=== PATIENT | female | born 1960 | race African-American/Black ===

== ENCOUNTER 2024-03-28 19:35 | Inpatient (IN) | payer MEDICAID ==
[~2024-03-28] VITALS: Ht 170.2 cm; Wt 83.7 kg
[~2024-03-28 19:35] MED LIST: GLIP10TA17 MT; LISI10TA26 MT; METF-1150 MT
[2024-03-28 20:00] VITALS: BP 130/76; PULSE 118; RESP 19; TEMP 36.1
[2024-03-28] MEDS ORDERED: NALOXONE HCL 0.4MG/ML 1ML VIAL IV PRN (20:00)
[2024-03-28] MEDS ORDERED: ACETAMINOPHEN WITH CODEINE 300/30MG TABLET PO PRN (20:00)
[2024-03-28] MEDS ORDERED: DOCUSATE SODIUM 100MG CAPSULE PO PRN (20:00)
[2024-03-28] MEDS ORDERED: ACETAMINOPHEN 325MG TABLET PO PRN (20:00)
[2024-03-28] MEDS ORDERED: DEXTROSE 50% WATER 50ML SYRINGE IV PRN (20:00)
[2024-03-28 20:23] VITALS: BP 130/76; PULSE 118; RESP 19; TEMP 36.1; O2SAT 99
[2024-03-28] MEDS ORDERED: NALOXONE HCL 0.4MG/ML VIAL IV PRN (20:30)
[2024-03-28] MEDS: ACETAMINOPHEN 325MG TABLET PO PRN (20:56)
[2024-03-28] MEDS: SENNOSIDES 8.6MG TABLET PO SCH (21:00)
[2024-03-28] MEDS: MELATONIN 3MG TABLET PO SCH (21:35)
[2024-03-28] MEDS: SODIUM BICARBONATE 650MG TABLET PO SCH (21:35)
[2024-03-28] MEDS: GUAIFENESIN 600MG ER TABLET PO SCH (21:35)
[2024-03-28] MEDS: BLOOD SUGAR DIAGNOSTIC STRIP TEST SCH (21:35)
[2024-03-28] MEDS: LORATADINE 10MG TABLET PO SCH (21:36)
[2024-03-28] MEDS: AMPICILLIN SOD/SULBACTAM NA 3 G in SODIUM CHLORIDE 0.9% 100 ML IV SCH (21:41)
[2024-03-28] MEDS: INSULIN GLARGINE 100 UNITS/ML SUBCUT SCH (22:35)
[2024-03-28] MEDS: INSULIN LISPRO 100 UNITS/ML SUBCUT SCH (22:35)
[2024-03-29] MEDS: ONDANSETRON HCL 4MG/2ML INJ IV PRN (00:37)
[2024-03-29] MEDS ORDERED: MECL-299 PO (03:00)
[2024-03-29] MEDS ORDERED: LISI40TA13 PO (03:00)
[2024-03-29] MEDS ORDERED: FLUT9.9S BOTHNSTRLS (03:23)
[2024-03-29] MEDS: PANTOPRAZOLE 40MG DR TABLET PO SCH (06:22)
[2024-03-29 07:39] LABS: CHLORIDE 106 mEq/L (98-107); POTASSIUM 4.1 mEq/L (3.5-5.1); SODIUM 140 mEq/L (136-145)
[2024-03-29 07:41] LABS: CALCIUM 9.4 mg/dL (8.7-10.4); CARBON DIOXIDE 25 mEq/L (21-32)
[2024-03-29 07:46] LABS: CREATININE 0.8 mg/dL (0.6-1.0); GLUCOSE 152 mg/dL (70-105); UREA NITROGEN BLOOD 6 mg/dL (9-23)
[2024-03-29 07:48] LABS: ALANINE AMINOTRANSFERASE 14 IU/L (10-49); ALBUMIN 3.3 g/dL (3.2-4.8); ASPARTATE AMINOTRANSFERASE 17 IU/L (<34); BILIRUBIN TOTAL 0.3 mg/dL (0.1-1.0); PROTEIN TOTAL 6.9 g/dL (6.0-8.3)
[2024-03-29 07:50] LABS: BASOPHILS % 0.3 % (0.0-2.0); DIFFERENTIAL COMMENT 0; EOSINOPHILS % 2.4 % (0.0-5.0); HEMATOCRIT. 26.9 % (36.0-48.0); HEMOGLOBIN. 8.8 g/dL (12.0-16.0); LYMPHOCYTES % 18.3 % (20.0-50.0); MEAN CORPUSCULAR HEMOGLOBIN 26.1 pg (28.0-32.0); MEAN CORPUSCULAR HGB CONC 32.7 g/dL (31.0-37.0); MEAN CORPUSCULAR VOLUME 79.8 fL (81.0-99.0); MEAN PLATELET VOLUME 7.8 fl (7.4-10.4); MONOCYTES % 8.9 % (2.0-8.0); NEUTROPHILS % 70.1 % (40.0-76.0); PLATELET 733 x1000/uL (130-400); RED BLOOD CELL COUNT 3.38 mill/uL (4.2-5.4); RED CELL DISTRIBUTION WIDTH 14.3 % (11.6-14.6); WHITE BLOOD COUNT 11.7 x1000/uL (4.5-11.0)
[2024-03-29 08:00] VITALS: BP 160/76; PULSE 110; RESP 18; TEMP 36.2; O2SAT 98
[2024-03-29] MEDS: POLYETHYLENE GLYCOL 3350 (17GM) 1 DOSE PACK PO SCH (08:45)
[2024-03-29] MEDS: FLUCONAZOLE 100MG TABLET PO SCH (08:45)
[2024-03-29] MEDS: FERROUS SULFATE 325MG TABLET PO SCH (08:45)
[2024-03-29] MEDS: HYDROCHLOROTHIAZIDE 12.5MG CAPSULE PO SCH (08:45)
[2024-03-29] MEDS: LISINOPRIL 40MG TABLET PO SCH (08:46)
[2024-03-29] MEDS: BISACODYL 5MG TABLET PO SCH (08:46)
[2024-03-29] MEDS ORDERED: LORATADINE 10MG TABLET PO SCH (09:00)
[2024-03-29] MEDS: CLONIDINE 0.1MG TABLET PO PRN (09:28)
[2024-03-29] MEDS: SODIUM CHLORIDE 45ML SPRAY NS PRN (12:48)
[2024-03-29 16:00] VITALS: PULSE 108; RESP 20
[2024-03-29] MEDS: IPRATROPIUM/ALBUTEROL 0.5-3(2.5)MG/3ML NEB HHN SCH (16:00)
[2024-03-29] MEDS: AMLODIPINE 2.5MG TABLET PO SCH (18:00)
[2024-03-29] MEDS: LEVOFLOXACIN 500MG TABLET PO SCH (18:00)
[2024-03-29 20:00] VITALS: BP 105/46; PULSE 95; RESP 18; TEMP 36.7; O2SAT 98
[2024-03-29 23:41] VITALS: PULSE 98; RESP 16; O2SAT 98
[2024-03-30 03:59] VITALS: PULSE 100; RESP 20; O2SAT 99
[2024-03-30 08:00] VITALS: BP 140/69; PULSE 91; RESP 19; TEMP 35.8; O2SAT 100
[2024-03-30 08:38] LABS: CARBON DIOXIDE 27 mEq/L (21-32); CHLORIDE 105 mEq/L (98-107); SODIUM 140 mEq/L (136-145)
[2024-03-30 08:39] LABS: CALCIUM 9.2 mg/dL (8.7-10.4)
[2024-03-30 08:44] LABS: CREATININE 0.7 mg/dL (0.6-1.0); GLUCOSE 168 mg/dL (70-105); UREA NITROGEN BLOOD 5 mg/dL (9-23)
[2024-03-30 09:21] LABS: BASOPHILS % 0.5 % (0.0-2.0); EOSINOPHILS % 2.8 % (0.0-5.0); HEMATOCRIT. 26.8 % (36.0-48.0); HEMOGLOBIN. 8.7 g/dL (12.0-16.0); LYMPHOCYTES % 20.9 % (20.0-50.0); MEAN CORPUSCULAR HEMOGLOBIN 26.3 pg (28.0-32.0); MEAN CORPUSCULAR HGB CONC 32.5 g/dL (31.0-37.0); MEAN CORPUSCULAR VOLUME 80.8 fL (81.0-99.0); MEAN PLATELET VOLUME 7.7 fl (7.4-10.4); MONOCYTES % 9.5 % (2.0-8.0); NEUTROPHILS % 66.3 % (40.0-76.0); PLATELET 652 x1000/uL (130-400); RED BLOOD CELL COUNT 3.32 mill/uL (4.2-5.4); RED CELL DISTRIBUTION WIDTH 14.8 % (11.6-14.6); WHITE BLOOD COUNT 10.4 x1000/uL (4.5-11.0)
[2024-03-30 11:28] VITALS: PULSE 90; RESP 20
[2024-03-30] MEDS ORDERED: IOHEXOL-300 100 ML BOTTLE ONE (15:06)
[2024-03-30 15:17] VITALS: PULSE 94; RESP 20
[2024-03-30 20:00] VITALS: BP 127/62; PULSE 103; RESP 18; TEMP 36.7; O2SAT 99
[2024-03-30 20:36] VITALS: PULSE 73; RESP 20
[2024-03-31 06:35] LABS: CHLORIDE 106 mEq/L (98-107); POTASSIUM 3.6 mEq/L (3.5-5.1); SODIUM 142 mEq/L (136-145)
[2024-03-31 06:36] LABS: CARBON DIOXIDE 29 mEq/L (21-32)
[2024-03-31 06:37] LABS: CALCIUM 9.1 mg/dL (8.7-10.4)
[2024-03-31 06:40] LABS: FERRITIN 337 ng/mL (10-291); VITAMIN B12 SERUM 364 pg/mL (211-911)
[2024-03-31 06:41] LABS: GLUCOSE 128 mg/dL (70-105); IRON 39 ug/dL (50-170)
[2024-03-31 06:42] LABS: PROTEIN TOTAL 6.7 g/dL (6.0-8.3)
[2024-03-31 06:43] LABS: ALANINE AMINOTRANSFERASE 13 IU/L (10-49); ALBUMIN 3.3 g/dL (3.2-4.8); ASPARTATE AMINOTRANSFERASE 19 IU/L (<34)
[2024-03-31 06:44] LABS: BILIRUBIN TOTAL 0.3 mg/dL (0.1-1.0); TOTAL IRON BINDING CAPACITY 201 ug/dl (250-425)
[2024-03-31 06:50] LABS: CREATININE 0.8 mg/dL (0.6-1.0)
[2024-03-31 07:06] LABS: BASOPHILS % 0.5 % (0.0-2.0); HEMATOCRIT. 25.1 % (36.0-48.0); HEMOGLOBIN. 8.4 g/dL (12.0-16.0); LYMPHOCYTES % 23.1 % (20.0-50.0); MEAN CORPUSCULAR HEMOGLOBIN 26.7 pg (28.0-32.0); MEAN CORPUSCULAR HGB CONC 33.4 g/dL (31.0-37.0); MEAN PLATELET VOLUME 7.5 fl (7.4-10.4); MONOCYTES % 10.4 % (2.0-8.0); PLATELET 636 x1000/uL (130-400); RED BLOOD CELL COUNT 3.13 mill/uL (4.2-5.4); RED CELL DISTRIBUTION WIDTH 14.6 % (11.6-14.6); WHITE BLOOD COUNT 8.4 x1000/uL (4.5-11.0)
[2024-03-31 07:21] LABS: UREA NITROGEN BLOOD < 5 mg/dL (9-23)
[2024-03-31 07:47] VITALS: PULSE 96; RESP 20; O2SAT 99
[2024-03-31 08:00] VITALS: BP 127/57; PULSE 92; RESP 18; TEMP 36.2; O2SAT 100
[2024-03-31] MEDS ORDERED: BISACODYL 10MG SUPP PR PRN (10:30)
[2024-03-31 11:57] VITALS: PULSE 109; RESP 20; O2SAT 98
[2024-03-31] MEDS: NA PHOS,M-B/NA PHOS,DI-BA ENEMA 118ML PR NR (15:34)
[2024-03-31 20:00] VITALS: BP 132/73; PULSE 102; RESP 18; TEMP 36.4; O2SAT 99
[2024-03-31] MEDS: POLYETHYLENE GLYCOL 3350 (17GM) 1 DOSE PACK PO SCH (20:31)
[2024-03-31 20:47] VITALS: PULSE 81; RESP 18; O2SAT 98
[2024-03-31 23:16] VITALS: PULSE 74; RESP 18; O2SAT 98
[2024-04-01] MEDS: GUAIFENESIN 200MG/10ML SUGAR FREE UDC PO PRN (02:07)
[2024-04-01 03:46] VITALS: PULSE 78; RESP 18; O2SAT 98
[2024-04-01 05:16] LABS: BASOPHILS % 0.5 % (0.0-2.0); CHLORIDE 106 mEq/L (98-107); DIFFERENTIAL COMMENT 0; EOSINOPHILS % 3.7 % (0.0-5.0); HEMATOCRIT. 25.6 % (36.0-48.0); HEMOGLOBIN. 8.4 g/dL (12.0-16.0); LYMPHOCYTES % 27.4 % (20.0-50.0); MEAN CORPUSCULAR HEMOGLOBIN 25.9 pg (28.0-32.0); MEAN CORPUSCULAR HGB CONC 32.9 g/dL (31.0-37.0); MEAN CORPUSCULAR VOLUME 78.8 fL (81.0-99.0); MEAN PLATELET VOLUME 7.3 fl (7.4-10.4); MONOCYTES % 10.5 % (2.0-8.0); NEUTROPHILS % 57.9 % (40.0-76.0); PLATELET 573 x1000/uL (130-400); POTASSIUM 3.3 mEq/L (3.5-5.1); RED BLOOD CELL COUNT 3.25 mill/uL (4.2-5.4); RED CELL DISTRIBUTION WIDTH 14.7 % (11.6-14.6); SODIUM 141 mEq/L (136-145)
[2024-04-01 05:17] LABS: CALCIUM 8.8 mg/dL (8.7-10.4); CARBON DIOXIDE 27 mEq/L (21-32)
[2024-04-01 05:22] LABS: CREATININE 0.9 mg/dL (0.6-1.0)
[2024-04-01 05:23] LABS: GLUCOSE 268 mg/dL (70-105)
[2024-04-01 05:52] LABS: UREA NITROGEN BLOOD < 5 mg/dL (9-23)
[2024-04-01 08:00] VITALS: BP 142/78; PULSE 82; RESP 16; TEMP 36.6; O2SAT 98
[2024-04-01 08:25] VITALS: PULSE 82; RESP 18; O2SAT 99
[2024-04-01] MEDS: POTASSIUM CHLORIDE 20MEQ TABLET SR PO SCH (13:00)
[2024-04-01 16:55] VITALS: PULSE 80; RESP 18; O2SAT 98
[2024-04-01 20:00] VITALS: BP 126/58; PULSE 103; RESP 18; TEMP 36.5; O2SAT 100
[2024-04-01 20:47] VITALS: PULSE 86; RESP 20; O2SAT 97
[2024-04-02] VITALS (8 sets, daily range): BP systolic 109–156; BP diastolic 57–64; PULSE 69–116; RESP 16–20; TEMP 35.8–36.6; O2SAT 96–100
[2024-04-02] MEDS: LEVOFLOXACIN 250MG TABLET PO SCH (11:25)
[2024-04-02] MEDS: ERGOCALCIFEROL 50000UNITS CAPSULE PO SCH (20:43)
[2024-04-03] VITALS (7 sets, daily range): BP systolic 106–132; BP diastolic 53–78; PULSE 71–101; RESP 16–20; TEMP 36.3–36.4; O2SAT 97–100
[2024-04-03] MEDS: CYANOCOBALAMIN 1000MCG/ML VIAL IM SCH (08:54)
[2024-04-03] MEDS: FOLIC ACID 1MG TABLET PO SCH (08:54)
[2024-04-03] MEDS: BISACODYL 10MG SUPP PR PRN (10:09)
[2024-04-03 21:26] LABS: BASOPHILS % 0.5 % (0.0-2.0); HEMATOCRIT. 26.6 % (36.0-48.0); HEMOGLOBIN. 8.7 g/dL (12.0-16.0); MEAN CORPUSCULAR HEMOGLOBIN 26.3 pg (28.0-32.0); MEAN CORPUSCULAR HGB CONC 32.7 g/dL (31.0-37.0); MEAN CORPUSCULAR VOLUME 80.3 fL (81.0-99.0); MEAN PLATELET VOLUME 7.6 fl (7.4-10.4); MONOCYTES % 9.1 % (2.0-8.0); NEUTROPHILS % 60.4 % (40.0-76.0); PLATELET 496 x1000/uL (130-400); RED BLOOD CELL COUNT 3.32 mill/uL (4.2-5.4); RED CELL DISTRIBUTION WIDTH 15.1 % (11.6-14.6); WHITE BLOOD COUNT 7.9 x1000/uL (4.5-11.0)
[2024-04-03 21:36] LABS: CHLORIDE 106 mEq/L (98-107); POTASSIUM 3.4 mEq/L (3.5-5.1); SODIUM 138 mEq/L (136-145)
[2024-04-03 21:37] LABS: CALCIUM 9.7 mg/dL (8.7-10.4); CARBON DIOXIDE 24 mEq/L (21-32)
[2024-04-03 21:42] LABS: CREATININE 0.9 mg/dL (0.6-1.0); GLUCOSE 150 mg/dL (70-105); UREA NITROGEN BLOOD 6 mg/dL (9-23)
[2024-04-04 08:00] VITALS: BP 126/60; PULSE 102; RESP 18; RESP 20; TEMP 36.1; O2SAT 100
[2024-04-04] MEDS: POTASSIUM CHLORIDE 20MEQ TABLET SR PO NR (14:37)
[2024-04-04 19:43] VITALS: BP 123/56; PULSE 104; RESP 20; TEMP 36.2; O2SAT 99
[2024-04-05 08:00] VITALS: BP 115/59; PULSE 79; RESP 20; TEMP 36.8; O2SAT 99
[2024-04-05 12:35] VITALS: BP 133/67; PULSE 72; TEMP 97.6; O2SAT 99
== END 2024-04-05 13:48 | disposition home health service (06) | DRG 52 ==
PROVIDERS: ADMIT Physical Medicine & Rehabilitation Spinal Cord Injury Medicine; ATTEND Hospitalist
DX: G93.41 Metabolic encephalopathy (principal); J96.21 Acute and chronic respiratory failure with hypoxia; J86.9 Pyothorax without fistula; A41.9 Sepsis, unspecified organism; J18.9 Pneumonia, unspecified organism; J90 Pleural effusion, not elsewhere classified; E11.42 Type 2 diabetes mellitus with diabetic polyneuropathy; B37.9 Candidiasis, unspecified; D72.829 Elevated white blood cell count, unspecified; J98.11 Atelectasis; J98.4 Other disorders of lung; D50.9 Iron deficiency anemia, unspecified; I10 Essential (primary) hypertension; J45.909 Unspecified asthma, uncomplicated; N39.0 Urinary tract infection, site not specified; E53.8 Deficiency of other specified B group vitamins; R13.10 Dysphagia, unspecified; E87.6 Hypokalemia; K59.00 Constipation, unspecified; R53.81 Other malaise; E55.9 Vitamin D deficiency, unspecified; R44.3 Hallucinations, unspecified; R53.83 Other fatigue; R53.1 Weakness; R26.89 Other abnormalities of gait and mobility; R41.82 Altered mental status, unspecified; Z16.21 Resistance to vancomycin; R91.8 Other nonspecific abnormal finding of lung field; Z82.49 Family history of ischemic heart disease and other diseases of the circulatory system; Z87.891 Personal history of nicotine dependence; Z88.5 Allergy status to narcotic agent; Z88.6 Allergy status to analgesic agent; Z91.81 History of falling; Z79.899 Other long term (current) drug therapy; Z63.4 Disappearance and death of family member
CPT/HCPCS: 36415; 70491; 71045; 74230; 80048; 80053; 82306; 82607; 82728; 82746; 82962; 83036; 83540; 83550; 84134; 84443; 85025; 92523; 92610; 92611; 94003; 94070; 94618; 94640; 94664; 94760; 97116; 97162; 97166; 97530; 97535; 98960; A4606; A6261; J0295; J1815; J2405; J3420; J7050; Q9967